=== PATIENT | female | born 1995 | race African-American/Black ===

== ENCOUNTER 2019-01-22 15:36 | Inpatient (IN) | payer OTHER ==
[2019-02-02 12:20] LABS: APPEARANCE,URINE CLOUDY; BILIRUBIN,URINE NEGATIVE (NEGATIVE); COLOR,URINE YELLOW; GLUCOSE, URINE NEGATIVE (NEGATIVE); KETONES,URINE NEGATIVE (NEGATIVE); LEUKOCYTE ESTERASE,URINE LARGE (NEGATIVE); NITRITE,URINE NEGATIVE (NEGATIVE); PROTEIN,URINE NEGATIVE (NEGATIVE); URINE SPECIFIC GRAVITY 1.008; UROBILINOGEN,URINE NEGATIVE mg/dL (<2.0)
[2019-02-02] MEDS ORDERED: OXYTOCIN/NORMAL SALINE 0 UNIT/0 ML RTUINJ ONE (12:21)
[2019-02-02] MEDS ORDERED: MAG HYDROX/AL HYDROX/SIMETH SUSP 30 ML UDCUP ONE (12:34)
[2019-02-02 12:48] LABS: URINE AMPHETAMINES SCREEN NEGATIVE; URINE BARBITURATES SCREEN NEGATIVE; URINE BENZODIAZEPINES SCREEN NEGATIVE; URINE COCAINE SCREEN NEGATIVE; URINE MARIJUANA (THC) SCREEN NEGATIVE; URINE METHADONE SCREEN NEGATIVE; URINE PHENCYCLIDINE SCREEN NEGATIVE
[2019-02-02 12:51] LABS: ABSOLUTE EOSINOPHILS # (AUTO) 0.2 10^3/uL (0.0-0.6); ABSOLUTE LYMPHOCYTES (AUTO) 1.5 10^3/uL (0.5-4.7); ABSOLUTE MONOCYTES (AUTO) 0.9 10^3/uL (0.1-1.4); ABSOLUTE NEUT (AUTO) 8.6 10^3/uL (1.7-8.2); BASOPHILS % (AUTO) 0.4 % (0-2); EOSINOPHILS % (AUTO) 1.6 % (0-6); HEMATOCRIT 36.2 % (36.0-47.0); LYMPHOCYTES % (AUTO) 13.2 % (13-45); MEAN CORPUSCULAR HEMOGLOBIN 29.7 pg (27.0-33.4); MEAN CORPUSCULAR HGB CONC 33.1 g/dL (32.0-36.0); MEAN CORPUSCULAR VOLUME 90 fl (80-97); MONOCYTES % (AUTO) 7.7 % (3-13); PLATELET COUNT 247 10^3/uL (150-450); RED BLOOD COUNT 4.03 10^6/uL (3.72-5.28); RED CELL DISTRIBUTION WIDTH 15.1 % (11.5-14.0); SEGMENTED NEUTROPHILS % (AUTO) 77.1 % (42-78); TOTAL CELLS COUNTED % (AUTO) 100 %; WHITE BLOOD COUNT 11.1 10^3/uL (4.0-10.5)
--- NOTE | 2019-02-02 15:37 | Admission Physical ---
Datetime Report Generated by CPN: 02/02/2019 15:37 CURRENT ADMISSION Chief Complaint: Scheduled Induction of Labor Indication for Induction: Post Dates Admit Impression : Term, Intrauterine Admit Plan: Admit to Unit; Initiate Labor Induction Protocol ALLERGIES Medication Allergies: naproxen sodium (03/25/2016); codeine (03/25/2016); acetaminophen (03/25/2016); ibuprofen (03/25/2016) OBSTETRICAL HISTORY : 3 Para: 1 Term: 1 : 0 SAB: 0 IAB: 1 Ectopic: 0 Livin Cesareans: 0 VBACs: 0 Multiple Births: 0 Gestational Diabetes: No Rh Sensitization: No Incompetent Cervix: No BAYLEE: No Infertility: No ART Treatment: No Uterine Anomaly: No IUGR: No Hx Previous C/S: No Macrosomia: No Hx Loss/Stillborn: No PIH: Yes Hx : No Placenta Previa/Abruption: No Depression/PP Depression: No PTL/PROM: No Post Hemorrhage: No Current Procedures: Ultrasound Obstetrical History Comments: G1: PreE, induced 37 weeks G2: current , no problems SEE RECORDS Alcohol: No Marijuana : No Cocaine: No Other Illicit Drugs: No Cigarettes: Never Smoker. [id number] MEDICAL HISTORY Diabetes: No Blood Transfusion: No Pulmonary Disease (Asthma, TB): No Breast Disease: No Hypertension: No Sampler Radioactive Waste Surgery: No Heart Disease: No Hosp/Surgery: No Autoimmune Disorder: No Anesthetic Complications: No Kidney Disease: No Abnormal Pap Smear: No Neuro/Epilepsy: No Psychiatric Disorders: No Other Medical Diseases: No Hepatitis/Liver Disease: No Significant Family History: No Varicosities/Phlebitis: No Trauma/Violence : No Thyroid Dysfunction: No INFECTIOUS HISTORY Gonorrhea: No Genital Herpes: No Chlamydia: No Tuberculosis: No Syphilis: No Hepatitis: No HIV/AIDS Exposure: No Rash or Viral Illness: No HPV: No PHYSICAL EXAM General: Normal HEENT: Normal Neurologic: Normal Thyroid: Deferred Heart: Normal Lungs: Normal Breast: Deferred Back: Normal Abdomen: Normal Genitourinary Exam: Normal Extremities: Normal DTRs: Deferred Pelvic Type: Adequate Physical Exam Comments: PELVIS PROVEN Vital Signs: Reviewed; Within Normal Limits VAGINAL EXAM Dilatation: 4 Effacement: 80 Station: -1 MEMBRANES Membranes: Intact FETUS A Monitoring: External US FHR- Baseline: 130 Variability: Moderate 6-25bpm Accelerations: 15X15 Decelerations: None Estimated Weight (gm): 3600 Presentation: Vertex Admit Comment: AT 41W PRESENTS FOR IOL FOR LATE TERM. PITOCIN STARTED. P:CONTINUE PITOCIN IOL, ANTICIPATE PLANS FOR LABOR AND DELIVERY Labor and Delivery: None Pain Management: None Feeding Preference: Breast Benefit of Breast Feed Discussed: Yes Circumcision: Yes INFORMED CONSENT Assignment: Pearl Anderson MD Signature: with User ID: [email or web address] : with User ID: [email or web address]
[2019-02-02] MEDS ORDERED: MISOPROSTOL 0.2 MG TABLET ONE (15:54)
[2019-02-02] MEDS ORDERED: OXYTOCIN/NORMAL SALINE 20 UNIT/1,000 ML RTUINJ ONE (15:54)
[2019-02-02] MEDS ORDERED: LIDOCAINE 1% INJ-PF (10 MG/ML) 30 ML SDV ONE (15:54)
[2019-02-02] MEDS ORDERED: OXYTOCIN 10 UNIT/ML VIAL ONE (15:54)
[2019-02-02] MEDS ORDERED: PROMETHAZINE HCL 25 MG SUPP.RECT PR PRN (16:54)
[2019-02-02] MEDS ORDERED: OXYTOCIN/NORMAL SALINE 20 UNIT/1,000 ML RTUINJ IV PRN (16:54)
[2019-02-02] MEDS ORDERED: DIPH/PERTUSS(ACELL)/TETANUS VAC/PF 0.5 ML SYR (>=10YO) IM PRN (16:54)
[2019-02-02] MEDS ORDERED: DIPHENHYDRAMINE HCL 25 MG CAPSULE PO PRN (16:54)
[2019-02-02] MEDS ORDERED: PROMETHAZINE HCL INJ 25 MG/1 ML VIAL IV PRN (16:54)
[2019-02-02] MEDS ORDERED: DIBUCAINE 1% OINTMENT 56 GM TP PRN (16:54)
[2019-02-02] MEDS ORDERED: NA PHOS,M-B/NA PHOS,DI-BA (ADULT) 133 ML ENEMA PR PRN (16:54)
[2019-02-02] MEDS ORDERED: PSEUDOEPHEDRINE HCL 30 MG TABLET PO PRN (16:54)
[2019-02-02] MEDS ORDERED: PROMETHAZINE HCL 25 MG TABLET PO PRN (16:54)
[2019-02-02] MEDS ORDERED: ZOLPIDEM TARTRATE 5 MG TABLET PO PRN (16:54)
[2019-02-02] MEDS ORDERED: MEASLES,MUMPS&RUBELLA VACC/PF 0.5 ML VIAL SUBCUT PRN (16:54)
[2019-02-02] MEDS ORDERED: MAGNESIUM HYDROXIDE SUSP 30 ML UDCUP PO PRN (16:54)
[2019-02-02] MEDS ORDERED: GLYCERIN/WITCH HAZEL LEAF 1 EACH MED..PAD TP PRN (16:54)
[2019-02-02] MEDS ORDERED: BENZOCAINE/MENTHOL AEROSOL SPRAY 56 ML TOP PRN (16:54)
[2019-02-02] MEDS ORDERED: TRAMADOL HCL 50 MG TABLET ONE (17:04)
--- NOTE | 2019-02-02 19:18 | Delivery Summary ---
Del Sum A-C Datetime Report Generated by CPN: 02/02/2019 19:18 DELIVERY PERSONNEL DELIVERY PERSONNEL: [id number] Delivery Doctor:: Kim Cho CNM Labor and Delivery Nurse:: Jody Schmidt, environmental professional Nurse:: Kathy Jordan, RN Nursery Nurse:: Carolyn Karimi, RN Student Observers:: Franci SALAS, ARLEN MATIAS, STUDENT NA Descriptive Catalog Librarian/GROUP CHIEF OPERATOR: Smiley Goel, GROUP CHIEF OPERATOR II Additional Personnel: : Kae Anderson, RN MATERNAL INFORMATION Delivery Anesthesia: None Medications After Delivery: Pitocin Bolus-Please Comment; Pitocin Drip 20 Units/1000ml NSS Maternal Complications: None Provider Comments: MANAV OF VIABLE MALE INFANT. NURSERY CALLED DUE TO MECONIUM NOTICED BEFORE DELIVERY. VIPIN. RIGHT NUCHAL HAND GRASPED AND POSTERIOR ARM _ SHOULDER DELIVERED TO RESOLVE 58SEC SHOULDER DYSTOCIA. BABY DEPRESSED INITIALLY AND CORD DOUBLE CLAMPED AND CUT. BABY TRANSFERED TO WARMER FOR RESCUSITATION BY RNs. SPONTANEOUS INTACT PLACENTA WITH 3VC. NO LACERATIONS. MOTHER STABLE IN L_D #3. BABY TX TO NURSERY. LABOR SUMMARY EDC: 01/26/2019 00:00 No. Babies in Womb: 1 Attempted: No Labor Anesthesia: None LABOR INFORMATION Reason for Induction: Post Dates Onset of Labor: 02/02/2019 12:31 Complete Dilatation: 02/02/2019 16:17 Oxytocin: Induction Group B Beta Strep: NEGATIVE Antibiotics # of Doses: 0 Steroids Given: None Reason Steroids Not Administered: Not Applicable MEMBRANES Membranes Rupture Method: Spontaneous Rupture of Membranes: 02/02/2019 14:40 Length of Rupture (hr): 1.87 Amniotic Fluid Color: Heavy Meconium Amniotic Fluid Amount: Small STAGES OF LABOR Stage 1 hr: 3 Stage 1 min: 46 Stage 2 hr: 0 Stage 2 min: 15 Stage 3 hr: 0 Stage 3 min: 5 Total Time in Labor hr: 4 Total Time in Labor min: 6 VAGINAL DELIVERY Episiotomy: None Laceration #1: None Laceration Extension #1: N/A Laceration Repair: Not Applicable Sponge Count Correct: N/A Sharps Count Correct: N/A BABY A INFORMATION Infant Delivery Date/Time: 02/02/2019 16:32 Method of Delivery: Vaginal Born in Route : No : N/A Forceps: N/A Vacuum Extraction: N/A Shoulder Dystocia : Yes SHOULDER DYSTOCIA BABY A Delivery of Head: 02/02/2019 16:31 Time Head to Delivery : 1.0 1st Intervention to Resolve: McRobert's Maneuver 2nd Intervention to Resolve: Posterior Arm Release Verify NO Fundal Pressure: No Fundal Pressure Applied Arm Under Symphisis at Del: Right Shoulder Dystocia Comments: DYSTOCIA WAS TIMED @ 51 SECONDS PRESENTATION/POSITION BABY A Presentation: Cephalic Cephalic Presentation: Vertex Vertex Position: Right Occipital Anterior Breech Presentation: N/A PLACENTA INFORMATION BABY A Placenta Delivery Time : 02/02/2019 16:37 Placenta Method of Delivery: Spontaneous Placenta Status: Delivered SCORES BABY A Heart Rate 1 min: >100 bpm Resp Effort 1 min: Absent Reflex Irritability 1 min: Grimace Muscle Tone 1 min: Flaccid Color 1 min: Blue/Pale Resuscitation Effort 1 min: Tactile Stimulation; Oxygen; PPV/NCPAP SCORE 1 MIN: 3 Heart Rate 5 min: >100 bpm Resp Effort 5 min: Slow, Irregular Reflex Irritability 5 min: Grimace Muscle Tone 5 min: Some Flexion of Extremities Color 5 min: Body [place], Extremities Blue Resuscitation Effort 5 min: Tactile Stimulation; Oxygen; PPV/NCPAP SCORE 5 MIN: 6 Heart Rate 10 min: >100 bpm Resp Effort 10 min: Good Cry Reflex Irritability 10 min: Cough or Sneeze or Pulls Away Muscle Tone 10 min: Active Motion Color 10 min: Body [place], Extremities Blue SCORE 10 MIN: 9 INFORMATION BABY A Gestational Age at Delivery: 41.0 Gestational Status: Late Term- 41- 41.6 Weeks Outcome : Liveborn Condition : Fair Sex: Male IDENTIFICATION BABY A ID Band Number: [id number] Infant RN Verifying : H. Brayan, RN and C. Shayan, RN WEIGHT/LENGTH BABY A Birthweight (gm): 3573 Infant Weight (lb): 7 Weight (oz): 14 Infant Length (in): 20.50 Infant Length (cm): 52.07 CORD INFORMATION BABY A No. Cord Vessels: 3 Nuchal Cord : N/A Cord Blood Taken: Yes-For Eval (Mom's Blood Type - or O+) Suction: Mouth; Nose ASSESSMENT BABY A Infant Complications: None Skin to Skin: Yes Printing Machinist/ALS Called : No Care By: Leon KARIMI RN Transferred To: Nursery BABY B INFORMATION : N/A SIGNATURES Assignment: Pearl Anderson MD Signature: with User ID: [email or web address] : with User ID: [email or web address] : I was personally available for consultation and serving as supervising physician for the MLP.
[2019-02-03] MEDS: FAMOTIDINE 20 MG TABLET PO SCH ×3 (02:12→22:06)
[2019-02-03] MEDS: TRAMADOL HCL 50 MG TABLET PO PRN ×2 (04:35→12:06)
[2019-02-03 07:34] LABS: HEMATOCRIT 33.2 % (36.0-47.0); HEMOGLOBIN 11.1 g/dL (12.0-15.5); MEAN CORPUSCULAR HEMOGLOBIN 30.2 pg (27.0-33.4); MEAN CORPUSCULAR HGB CONC 33.5 g/dL (32.0-36.0); MEAN CORPUSCULAR VOLUME 90 fl (80-97); PLATELET COUNT 245 10^3/uL (150-450); RED BLOOD COUNT 3.69 10^6/uL (3.72-5.28); RED CELL DISTRIBUTION WIDTH 14.7 % (11.5-14.0); WHITE BLOOD COUNT 15.6 10^3/uL (4.0-10.5)
[2019-02-03] MEDS: FERROUS SULFATE 325 MG TABLET PO SCH ×3 (09:15→18:13)
[2019-02-03] MEDS: DOCUSATE SODIUM 100 MG CAPSULE PO SCH ×3 (09:15→18:13)
[2019-02-03] MEDS: SENNOSIDES/DOCUSATE 8.6-50 MG 1 EACH TABLET PO SCH (09:23)
[2019-02-03] MEDS: PRENATAL VITAMIN W DHA CAPSULE PO SCH (09:23)
--- NOTE | 2019-02-03 10:59 | PDOC PROGRESS REPORT ---
Subjective-OB Progress Note for:: 02/03/19 Subjective: Pt doing well, no concerns. She reports light bleeding, reg diet and voiding without difficulty. Physical Exam (OB) Vital Signs: Temp Pulse Resp BP Pulse Ox 98.2 F 80 20 137/89 H 98 02/03/19 08:12 02/03/19 08:12 02/03/19 08:12 02/03/19 08:12 02/03/19 08:12 Intake & Output 02/02/19 02/03/19 02/04/19 06:59 06:59 06:59 Intake Total 240 Balance 240 Weight 100 kg - Lochia Lochia Amount: Scant < 10 ml Lochia Color: Rubra/Red - Abdomen Description: Tender, Soft Hernia Present: No Fundal Description: Firm, Midline Fundal Height: u/u - u/2 Objective-Diagnostic Laboratory: 02/03/19 06:24 02/02/19 02/02/19 02/02/19 11:40 12:38 12:38 WBC 11.1 H RBC 4.03 Hgb 12.0 Hct 36.2 MCV 90 MCH 29.7 MCHC 33.1 RDW 15.1 H Plt Count 247 Seg Neutrophils % 77.1 Lymphocytes % 13.2 Monocytes % 7.7 Eosinophils % 1.6 Basophils % 0.4 Absolute Neutrophils 8.6 H Absolute Lymphocytes 1.5 Absolute Monocytes 0.9 Absolute Eosinophils 0.2 Absolute Basophils 0.0 Urine Color YELLOW Urine Appearance CLOUDY Urine pH 7.0 Ur Specific [place] 1.008 Urine Protein NEGATIVE Urine Glucose (UA) NEGATIVE Urine Ketones NEGATIVE Urine Blood NEGATIVE Urine Nitrite NEGATIVE Ur Leukocyte Esterase LARGE H Blood Type B NEGATIVE Antibody Screen POSITIVE 02/03/19 06:24 WBC 15.6 H RBC 3.69 L Hgb 11.1 L Hct 33.2 L MCV 90 MCH 30.2 MCHC 33.5 RDW 14.7 H Plt Count 245 Seg Neutrophils % Lymphocytes % Monocytes % Eosinophils % Basophils % Absolute Neutrophils Absolute Lymphocytes Absolute Monocytes Absolute Eosinophils Absolute Basophils Urine Color Urine Appearance Urine pH Ur Specific [place] Urine Protein Urine Glucose (UA) Urine Ketones Urine Blood Urine Nitrite Ur Leukocyte Esterase Blood Type Antibody Screen Assessment and Plan(PN) - Assessment and Plan (1) Anemia due to acute blood loss Is this a current diagnosis for this admission?: Yes (2) Delivery normal Is this a current diagnosis for this admission?: Yes - Time Spent with Patient Time with patient: Less than 15 minutes Medications reviewed and adjusted accordingly: Yes - Disposition Anticipated Discharge: Home Within: within 24 hours
[2019-02-04] MEDS: TRAMADOL HCL 50 MG TABLET PO PRN (00:33)
[2019-02-04] MEDS: PRENATAL VITAMIN W DHA CAPSULE PO SCH (09:26)
[2019-02-04] MEDS: SENNOSIDES/DOCUSATE 8.6-50 MG 1 EACH TABLET PO SCH (09:26)
[2019-02-04] MEDS: FAMOTIDINE 20 MG TABLET PO SCH (09:27)
[2019-02-04] MEDS: FERROUS SULFATE 325 MG TABLET PO SCH (09:27)
[2019-02-04] MEDS: DOCUSATE SODIUM 100 MG CAPSULE PO SCH (09:28)
[2019-02-04 13:04] VITALS: BP 120/80
--- NOTE | 2019-02-04 14:38 | PDOC DISCHARGE SUMMARY ---
Final Diagnosis Discharge Date: 02/04/19 - Final Diagnosis (1) Delivery normal Is this a current diagnosis for this admission?: Yes (2) Is this a current diagnosis for this admission?: Yes (3) Shoulder dystocia during labor and delivery, delivered Is this a current diagnosis for this admission?: Yes Discharge Data - Discharge Medication Home Medications: Vit/Iron Fum/Folic AC [ Tablet] 1 tab PO DAILY 10/01/15 Reason(s) for Admission: Induction of Labor Procedures: NST, Ultrasound Intrapartum Procedure(s): Spontaneous Vaginal Delivery - with shoulder dystocia - Diagnosis Test Laboratory: Temp Pulse Resp BP Pulse Ox 98.3 F 82 18 134/90 H 99 02/04/19 10:01 02/04/19 10:01 02/04/19 10:01 02/03/19 19:35 02/04/19 10:01 02/02/19 02/02/19 02/03/19 11:40 12:38 06:24 RBC 4.03 3.69 L Hgb 12.0 11.1 L Hct 36.2 33.2 L Urine Opiates Screen NEGATIVE - Discharge information/Instructions Discharge Activity: Activity As Tolerated, Balance Activity w/Rest, No Lifting Over 10 Pounds, Pelvic Rest, Supervised Activity, No tub bath, Walk Frequently Discharge Diet: As Tolerated, Regular Disposition: HOME, SELF-CARE Follow [facility] with: [facility] in: 5, Weeks
== END 2019-02-04 15:11 | disposition home or self-care (01) | DRG 806 ==
LOC: EDSTATUS 15:40 → LR 02-02 11:28 → 2S 02-02 20:14
PROVIDERS: ADMIT Obstetrics & Gynecology; ATTEND Obstetrics & Gynecology
PROC: 10E0XZZ Delivery of Products of Conception, External Approach (ICD-10-PCS; principal; 2019-02-02)
PROC: 3E033VJ Introduction of Other Hormone into Peripheral Vein, Percutaneous Approach (ICD-10-PCS; 2019-02-02)
PROC: 4A1HXCZ Monitoring of Products of Conception, Cardiac Rate, External Approach (ICD-10-PCS; 2019-02-02)
DX: O48.0 Post-term pregnancy (principal); D62 Acute posthemorrhagic anemia; Z37.0 Single live birth; O66.0 Obstructed labor due to shoulder dystocia; O90.81 Anemia of the puerperium; Z88.6 Allergy status to analgesic agent; Z88.8 Allergy status to other drugs, medicaments and biological substances; Z3A.41 41 weeks gestation of pregnancy
CPT/HCPCS: 36415; 80307; 81005; 85025; 85027; 86592; 86850; 86870; 86900; 86901; 86920; 86922; J2590; J3490